=== PATIENT | male | born 1985 ===

== ENCOUNTER 2016-08-16 19:20 | Inpatient (IN) | payer MEDICAID, OTHER ==
[2016-08-16 19:22] VITALS: BMI 26.9
[2016-08-16] MEDS ORDERED: Iohexol 240 (50 ml) PO STA (19:55)
[2016-08-16] MEDS ORDERED: Iohexol 240 (50 ml) ONE (19:56)
[2016-08-16 20:07] LABS: BASO # 0.1 K/uL (0.0-0.2); BASO % 0.8 % (0.0-2.0); EOS # 0.1 K/uL (0.0-0.7); EOS % 1.4 % (0.0-4.0); HEMATOCRIT 46.8 % (35.0-51.0); LYMPH % 29.7 % (20.0-40.0); MEAN CELL VOLUME 94.4 fl (80.0-94.0); MEAN CORPUSCULAR HEMOGLOBIN 32.5 pg (27.0-31.0); MEAN CORPUSCULAR HGB CONC 34.4 g/dL (33.0-37.0); MEAN PLATELET VOLUME 8.1 fl (7.2-11.7); MONO # 0.5 K/uL (0.0-0.8); MONO % 7.1 % (0.0-10.0); NEUT # 4.1 K/uL (1.8-7.0); NRBC % 0.1 % (0.0-0.0); RED CELL DISTRIBUTION WIDTH 12.6 % (11.5-14.5); WHITE BLOOD COUNT 6.8 K/uL (4.8-10.8)
[2016-08-16 20:17] LABS: ALB/GLOB RATIO 1.6 (1.0-2.1); ALCOHOL SERUM < 10 mg/dl (0-10); ALKALINE PHOSPHATASE 53 U/L (38-126); ALT/SGPT 33 U/L (21-72); AST/SGOT 30 U/L (17-59); BILIRUBIN,TOTAL 1.6 mg/dl (0.2-1.3); BLOOD UREA NITROGEN 11 mg/dl (9-20); CALCIUM 9.7 mg/dL (8.4-10.2); CARBON DIOXIDE 22 mmol/L (22-30); CHLORIDE 105 mmol/L (98-107); GFR AFRICAN-AMERICAN > 60; GLUCOSE,RANDOM 81 mg/dL (75-110); LIPASE 65 U/L (23-300); POTASSIUM 3.8 MMOL/L (3.6-5.0); SODIUM 139 mmol/l (132-148); TOTAL PROTEIN 8.1 G/DL (6.3-8.2)
[2016-08-16 20:47] LABS: RBC URINE 8 /hpf (0-3); URINE BILIRUBIN NEGATIVE (NEGATIVE); URINE BLOOD SMALL (NEGATIVE); URINE COLOR YELLOW (YELLOW); URINE GLUCOSE (UA) NEG (Normal); URINE KETONE TRACE mg/dL (NEGATIVE); URINE LEUKOCYTE ESTERASE NEG Leu/uL (Negative); URINE PROTEIN 30 mg/dL (NEGATIVE); URINE UROBILINOGEN 0.2-1.0 mg/dL (0.2-1.0); WBC URINE 1 /hpf (0-5)
--- NOTE | 2016-08-16 21:01 | ED PDOC ---
HPI: General Adult Time Seen by Provider: 08/16/16 19:34 Chief Complaint (Nursing): Psychiatric Evaluation Chief Complaint (Provider): Generalized Weakness/Right-Sided Abdominal Pain History Per: Patient, Family (mother) History/Exam Limitations: no limitations Onset/Duration Of Symptoms: Hrs (2 hours prior to arrival) Have you had recent travel within the past 21 days to any of the following countries: [place], [place], [place] or [place]?: No Current Symptoms Are (Timing): Still Present Severity: Moderate Context: Noncompliance with Lisinopril (HTN medication) Location: Diffuse, generalized weakness/Right abdomen Additional Complaint(s): Laurent Moore is a 31 year old male, with a past medical history of bipolar disorder and hypertension, who presents to the emergency department via EMS for the evaluation of generalized weakness and right-sided abdominal pain, that the patient began experiencing 2 hours prior to arrival. Patient is in noncompliance with Lisinopril, a medication that he is meant to be taking for hypertension. Patient reports that his sister called the EMS to bring him in to the hospital; however, he did not wish to come here. Mother is at bedside with patient, states that he has bipolar disorder, and that he has been religiously preoccupied for the past 4 months, in which he is under delusion and believes that he is a "prophet". Patient makes no complaints when asked about his abdominal pain; however, feels as if his left leg is "internally " bleeding. Denies a fever, cough, nausea, vomiting, diarrhea, shortness of breath, or any psychiatric complaints. PMD: Lance Sam Past Medical History Reviewed: Historical Data, Nursing Documentation, Vital Signs Vital Signs: Last Vital Signs Temp 98.1 F 08/17/16 02:38 Pulse 81 08/17/16 02:38 Resp 16 08/17/16 02:38 BP 134/84 08/17/16 02:38 Pulse Ox 99 08/17/16 03:13 - Medical History PMH: Bipolar Disorder, Fractures (arm, casted w/o surgery), Hepatitis (type B), HTN Denies: Chronic Kidney Disease Other PMH: Hemorrhoids - Surgical History Surgical History: Hernia Repair - Family History Family History: States: No Known Family Hx - Living Arrangements Living Arrangements: With Family - Social History Current smoker - smoking cessation education provided: No Ex-Smoker (has not smoked in the last 12 months): No Alcohol: None Drugs: Denies - Immunization History Hx Tetanus Toxoid Vaccination: No Hx Influenza Vaccination: No Hx Pneumococcal Vaccination: No - Home Medications Home Medications: Ambulatory Orders Medication Instructions Recorded No Known Home Med 08/16/16 - Allergies Allergies/Adverse Reactions: Allergies Allergy/AdvReac Type Severity Reaction Status Date / Time No Known Allergies Allergy Verified 03/29/16 22:37 Review of Systems ROS Statement: Except As Marked, All Systems Reviewed And Found Negative Constitutional: Negative for: Fever Respiratory: Negative for: Cough, Shortness of Breath Gastrointestinal: Positive for: Abdominal Pain (right-sided). Negative for: Nausea, Vomiting, Diarrhea Neurological: Positive for: Weakness (generalized) Psych: Negative for: Other (psychiatric complaints) Physical Exam - Reviewed Nursing Documentation Reviewed: Yes Vital Signs Reviewed: Yes - Physical Exam Appears: Positive for: Well, Non-toxic, No Acute Distress Head Exam: Positive for: ATRAUMATIC, NORMOCEPHALIC Skin: Positive for: Normal Color, Warm, Dry Eye Exam: Positive for: Normal appearance, EOMI Cardiovascular/Chest: Positive for: Regular Rate, Rhythm. Negative for: Murmur Respiratory: Positive for: Normal Breath Sounds. Negative for: Respiratory Distress Gastrointestinal/Abdominal: Positive for: Normal Exam, Soft. Negative for: Tenderness Extremity: Positive for: Normal ROM. Negative for: Tenderness Neurologic/Psych: Positive for: Alert, Oriented, Mood/Affect (flat affect), Other (appears internally preoccupied) - Laboratory Results Result Diagrams: 08/16/16 20:00 08/16/16 20:00 - ECG O2 Sat by Pulse Oximetry: 99 (RA) Pulse Ox Interpretation: Normal Medical Decision Making Medical Decision Makin:34 Initial Impression: 31 year old male with vague abdominal pain, setting of known bipolar disorder, and mandaeism delusion. Initial Plan: * CT Abdomen & Pelvis w/ PO & IV Contrast * EKG * Alcohol Serum * CBC * CMP * Lipase * Urine Drug Screen * Urinalysis * Iohexol 50 ml PO * Crisis Evaluation * 1:1 Observation * ED Observation 20:30 Patient denies pain medication. 22:25 CT Abdomen & Pelvis w/ PO & IV Contrast Results FINDINGS: Lower thorax: Mild cardiomegaly. ABDOMEN: Liver: Unremarkable. No mass. Gallbladder and bile ducts: No calcified stones. No ductal dilation. Pancreas: No ductal dilation. No mass. Spleen: No splenomegaly. Adrenals: RIGHT adrenal calcifications. Kidneys and ureters: Few too small to characterize lesions within kidneys. No hydronephrosis. Stomach and bowel: No definite mural thickening. Few minimally distended loops of small bowel, likely ileus. Appendix: Normal caliber. No inflammation. PELVIS: Bladder: Unremarkable. Reproductive: Unremarkable as visualized. ABDOMEN and PELVIS: Intraperitoneal space: No significant fluid collection. No free air. Bones/Joints: Chronic L5 pars defects. No acute fracture. Soft tissues: Postsurgical changes of RIGHT inguinal region. 2.1 x 1.5 x 2.4 cm fluid collection without peripheral enhancement at level of RIGHT inguinal canal , nonspecific but likely seroma. Vasculature: Unremarkable. No abdominal aortic aneurysm. Lymph nodes: No pathologically enlarged lymph nodes. IMPRESSION: 1. No CT evidence of appendicitis. 2. Incidental/non-acute findings are described above. 22:36 Patient will be placed within ED Observation secondary to time-extensive workup. Pending [facility] screening evaluation. See Observation note for further updates. PAtient is medically stable for psychiatric transfer and admission Scribe Attestation: Documented by Alexx Tyler, acting as a scribe for Elian Aggarwal MD. Provider Scribe Attestation: All medical record entries made by the Scribe were at my direction and personally dictated by me. I have reviewed the chart and agree that the record accurately reflects my personal performance of the history, physical exam, medical decision making, and the department course for this patient. I have also personally directed, reviewed, and agree with the discharge instructions and disposition. ED OBSERVATION Discharge: Yes Date of observation admission: 05/13/17 Time of observation admission: 22:36 - Observation admission statement Patient is being placed in observation because:: Patient will be placed within ED Observation secondary to time-extensive workup. - Goals of Observation Goals of observation are:: Pending [facility] screening evaluation. - Progress Note Progress Note: 08/16/16 23:21 Vitals stabel and pt resting comfortably Pt evaluated by crisis and will be held for [facility] screener evaluation Pt placed on 1:1 status 08/17/16 03:12 As per crisis patient is now amenable to voluntary admission Dx Psychosis Fair 08/17/16 03:13 Disposition - Clinical Impression Clinical Impression: Psychosis - Patient ED Disposition Is Patient to be Admitted: Yes - Disposition Disposition Time: 22:36 Condition: FAIR - Pt Status Changed To: Hospital Disposition Of: Inpatient - Admit Certification Admit to Inpatient:: After my assessment, the patient will require hospitalization for at least two midnights. This is because of the severity of symptoms shown, intensity of services needed, and/or the medical risk in this patient being treated as an outpatient.
[2016-08-16] MEDS ORDERED: Sodium Chloride 0.9% 50 ML IV ONE (21:20)
[2016-08-16] MEDS ORDERED: Iohexol 300 100 ML IJ ONE (21:20)
--- NOTE | 2016-08-16 22:26 | CT ---
EXAM: CT Abdomen and Pelvis With Intravenous Contrast CLINICAL HISTORY: 31 years old, male; Pain; Abdominal pain; Localized; Right lower quadrant (rlq); Prior surgery; Surgery date: 6+ months; Surgery type: Rt inguinal hernia repair 2011; Patient HX: Rtlq pain. Hepatitis b. Bipolar hemmorroids; Additional info: Abd pain TECHNIQUE: Axial computed tomography images of the abdomen and pelvis with intravenous contrast. This CT exam was performed using one or more of the following dose reduction techniques: automated exposure control, adjustment of the mA and/or kV according to patient size, and/or use of iterative reconstruction technique. Coronal and sagittal reformatted images were created and reviewed. CONTRAST: 98 mL of OMNIPAQUE administered intravenously. COMPARISON: No relevant prior studies available. FINDINGS: Lower thorax: Mild cardiomegaly. ABDOMEN: Liver: Unremarkable. No mass. Gallbladder and bile ducts: No calcified stones. No ductal dilation. Pancreas: No ductal dilation. No mass. Spleen: No splenomegaly. Adrenals: RIGHT adrenal calcifications. Kidneys and ureters: Few too small to characterize lesions within kidneys. No hydronephrosis. Stomach and bowel: No definite mural thickening. Few minimally distended loops of small bowel, likely ileus. Appendix: Normal caliber. No inflammation. PELVIS: Bladder: Unremarkable. Reproductive: Unremarkable as visualized. ABDOMEN and PELVIS: Intraperitoneal space: No significant fluid collection. No free air. Bones/joints: Chronic L5 pars defects. No acute fracture. Soft tissues: Postsurgical changes of RIGHT inguinal region. 2.1 x 1.5 x 2.4 cm fluid collection without peripheral enhancement at level of RIGHT inguinal canal, nonspecific but likely seroma. Vasculature: Unremarkable. No abdominal aortic aneurysm. Lymph nodes: No pathologically enlarged lymph nodes. IMPRESSION: 1. No CT evidence of appendicitis. 2. Incidental/non-acute findings are described above.
[2016-08-17] MEDS ORDERED: Alum-Mag Hydrox-Simethicone Susp (30 mL) PO PRN (02:52)
[2016-08-17] MEDS ORDERED: Magnesium Hydroxide Susp 30 ml UD PO PRN (02:52)
[2016-08-17] MEDS ORDERED: DiphenhydrAMINE 50 mg/ml Inj IM PRN (02:52)
[2016-08-17] MEDS ORDERED: Bismuth Subsalicylate 262 mg/15 ml Sus (240 ml) PO PRN (02:54)
[2016-08-17 03:13] VITALS: O2SAT 99
--- NOTE | 2016-08-17 08:58 | RAD ---
HISTORY: admit COMPARISON: No prior. FINDINGS: LUNGS: No active pulmonary disease. PLEURA: No significant pleural effusion identified, no pneumothorax apparent. CARDIOVASCULAR: Normal. OSSEOUS STRUCTURES: No significant abnormalities. VISUALIZED UPPER ABDOMEN: Normal. OTHER FINDINGS: None. IMPRESSION: No active disease.
[2016-08-17 09:26] LABS: T4 9.19 ug/dl (5.5-11.0)
[2016-08-17 09:40] LABS: THYROID STIMULATING HORMONE 1.46 mIU/ML (0.46-4.68)
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
--- NOTE | 2016-08-17 15:31 | CP.PCM.HP ---
History of Present Illness - History of Present Illness History of Present Illness: CC: Hallucination and Delusion History of Present Illness: A 31yoM with H/O CMY and Psychosis is hospitalized for Schizophrenia with active Psychotic behaviour. Denies sob, leg swelling or chest pain. H/O KNUTSON. Present on Admission - Present on Admission Any Indicators Present on Admission: No History of DVT/PE: No History of Uncontrolled Diabetes: No Urinary Catheter: No Decubitus Ulcer Present: No Review of Systems - Review of Systems All systems: reviewed and no additional remarkable complaints except - Psychiatric Psychiatric: As Per HPI Past Patient History - Infectious Disease Hx of Infectious Diseases: None - Past Medical History & Family History Past Medical History?: No - Past Social History Chewing Tobacco Use: Yes Cigar Use: Yes Alcohol: None Drugs: Denies - CARDIAC Hx Hypertension: Yes Other/Comment: Cardiomyopathy - PULMONARY Hx Tuberculosis: No - NEUROLOGICAL HX Cerebrovascular Accident: No Hx Seizures: No - HEENT Hx HEENT Problems: No - RENAL Hx Chronic Kidney Disease: No - ENDOCRINE/METABOLIC Hx Endocrine Disorders: No - HEMATOLOGICAL/ONCOLOGICAL Hx Cancer: No Hx Human Immunodeficiency Virus (HIV): No - INTEGUMENTARY Hx Dermatological Problems: No - MUSCULOSKELETAL/RHEUMATOLOGICAL Hx Fractures: Yes (arm, casted w/o surgery) - GASTROINTESTINAL Hx Hemorrhoids: Yes - GENITOURINARY/GYNECOLOGICAL Hx Sexually Transmitted Disorders: No - PSYCHIATRIC Hx Substance Use: No - SURGICAL HISTORY Hx Surgeries: No Hx Herniorrhaphy: Yes - ANESTHESIA Hx Anesthesia: Yes Hx Anesthesia Reactions: No Hx Malignant Hyperthermia: No Has any member of the family had a problem w/ anesthesia?: No Meds Allergies/Adverse Reactions: Allergies Allergy/AdvReac Type Severity Reaction Status Date / Time No Known Allergies Allergy Verified 03/29/16 22:37 Physical Exam - Constitutional Appears: Well, No Acute Distress - Head Exam Head Exam: ATRAUMATIC, NORMAL INSPECTION, NORMOCEPHALIC - Eye Exam Eye Exam: EOMI, Normal appearance, PERRL Pupil Exam: NORMAL ACCOMODATION, PERRL - ENT Exam ENT Exam: Mucous Membranes Dry, Mucous Membranes Moist, Normal Exam - Neck Exam Neck exam: Positive for: Full Rom, Normal Inspection - Respiratory Exam Respiratory Exam: Clear to Auscultation Bilateral, NORMAL BREATHING PATTERN - Cardiovascular Exam Cardiovascular Exam: REGULAR RHYTHM, +S1, +S2 - GI/Abdominal Exam GI & Abdominal Exam: Diminished Bowel Sounds, Normal Bowel Sounds, Soft. absent : Tenderness - Extremities Exam Extremities exam: Positive for: full ROM, normal inspection. Negative for: calf tenderness - Neurological Exam Neurological exam: Alert, CN II-XII Intact, Normal Gait, Oriented x3, Reflexes Normal - Skin Skin Exam: Dry, Intact, Normal Color, Warm Results - Vital Signs Recent Vital Signs: Last Vital Signs Temp 97.7 F 08/17/16 06:00 Pulse 90 08/17/16 06:00 Resp 19 08/17/16 06:00 BP 132/75 08/17/16 06:00 Pulse Ox 99 08/17/16 03:14 - Labs Result Diagrams: 08/16/16 20:00 08/16/16 20:00 Labs: Laboratory Results - last 24 hr 08/17/16 08:00 Triglycerides 42 Cholesterol 150 LDL Cholesterol Direct 81 HDL Cholesterol 48 Thyroxine (T4) 9.19 TSH 3rd Generation 1.46 - Imaging and Cardiology CT scan - abdomen Status: Report reviewed by me Additional comment: IMPRESSION: 1. No CT evidence of appendicitis. 2. Incidental/non-acute findings are described above. Chest x-ray Status: Report reviewed by me Additional comment: No CAute finding Assessment & Plan (1) Cardiomyopathy Assessment and Plan: Echocardiogram Resume Lisinopril 10mg Daily Status: Chronic Priority: Low (2) Psychosis Status: Acute Priority: High (3) Migraine Status: Chronic Priority: Low
--- NOTE | 2016-08-18 09:20 | CARD ---
APPROVED REPORT EKG Measurement Heart [id number] <Conclusion> Normal sinus rhythm Incomplete right bundle branch block Possible inferior and lateral wall ischemia Borderline ECG
--- NOTE | 2016-08-18 09:59 | PCM.PYCHPN ---
Psychiatric Progress Note - Psychiatric Progress Note Patient seen today, length of contact: Patient evaluated, case discussed with team, chart reviewed, 35 min Patient Chief Complaint: "I've been hearing voices." Problems Identified/Issues Discussed: Patient continues to report AH and +Quaker delusions. When asked what his nursing home goals are, he stated "to be a better prophet of God." He is calm and cooperative but has poor insight into the severity of his psychosis. He states that he does not want to take the Risperdal anymore because he felt GI upset. [employer] Manager discussed starting Zyprexa, r/b/se reviewed, patient in agreement. Medication Change: Yes (Stop Risperdal, Start Zyprexa 10 mg PO Daily) Medical Record Reviewed: Yes Consults ordered or reviewed: Medicine consult appreciated Mental Status Examination - Cognitive Function Orientation: Person, Place, Situation, Time Memory: Intact Attention: WNL Concentration: WNL Association: WNL Fund of Knowledge: WNL - Mood Mood: Neutral - Affect Affect: Blunted - Speech Speech: Appropriate - Formal Thought Process Formal Thought Process: Hallucinations, Delusions, Paranoia Psychotic Thoughts and Behaviors: +AH, paranoia, delusions - Suicidal Ideation Suicidal Ideation: No - Homicidal Ideation Homicidal Ideation: No Goal/Treatment Plan - Goal/Treatment Plan Need for Continued Stay: Remain at risks for inpatient hospitalization, Discharge may exacerbated symptoms Progress Toward Problem(s) and Goals/Treatment Plan: 31 yo male w/ acute psychosis, likely has schizophrenia, continues to need acute inpatient hospitalization for treatment and stabilization. -Patient unwilling to continue taking Risperdal, will start Zyprexa 10 mg PO Daily -Medicine consult appreciated -Individual and group therapy -Obtain collateral history Estimated Date of D/C: 08/25/16
--- NOTE | 2016-08-18 16:10 | CARD ---
APPROVED REPORT EXAM: Two-dimensional and M-mode echocardiogram with Doppler and color Doppler. Other Information Quality : GoodRhythm : NSR INDICATION Cardiomyopathy 2D DIMENSIONS IVSd1.07 (0.7-1.1cm)LVDd5.58 (3.9-5.9cm) LVOT Diameter2.66 (1.8-2.4cm)PWd0.89 (0.7-1.1cm) IVSs0.95 (0.8-1.2cm)LVDs5.15 (2.5-4.0cm) FS (%) 7.8 %PWs1.00 (0.8-1.2cm) LVEF (%)30.0 (>50%) M-Mode DIMENSIONS Left Atrium (MM)3.29 (2.5-4.0cm)IVSd1.03 (0.7-1.1cm) Aortic Root3.82 (2.2-3.7cm)LVDd6.03 (4.0-5.6cm) Aortic Cusp Exc.2.62 (1.5-2.0cm)PWd0.79 (0.7-1.1cm) IVSs1.24 cmFS (%) 18 % LVDs4.94 (2.0-3.8cm)PWs1.06 cm Mitral Valve E/A ratio0.0 TDI E/Lateral E'0.0E/Medial E'0.0 Pulmonary Valve PV Peak Eamcqlhz16.6cm/s LEFT VENTRICLE The Left Ventricle is borderline dilated. There is normal left ventricular wall thickness. The systolic function is severely impaired. There is global hypokinesis of the left ventricle. The left ventricular diastolic function is normal. No left ventricle thrombus noted on this study. RIGHT VENTRICLE The right ventricle is normal size. There is normal right ventricular wall thickness. RV Systolic function is mildly reduced. ATRIA The left atrium size is normal. The right atrium size is normal. AORTIC VALVE The aortic valve is mildly thickened. No aortic regurgitation is present. There is no aortic valvular stenosis. MITRAL VALVE The mitral valve is mildly thickened. There is no mitral valve stenosis. There is no mitral valve regurgitation noted. TRICUSPID VALVE The tricuspid valve is normal in structure and function. There is no tricuspid valve regurgitation noted. PULMONIC VALVE The pulmonary valve is normal in structure and function. There is no pulmonic valvular regurgitation. GREAT VESSELS The aortic root is normal in size. The IVC was not visualized. PERICARDIAL EFFUSION The pericardium appears normal. <Conclusion> The Left Ventricle is borderline dilated. There is normal left ventricular wall thickness. The systolic function is severely impaired. There is global hypokinesis of the left ventricle. No left ventricle thrombus noted on this study.
--- NOTE | 2016-08-18 20:53 | CP.PCM.PN ---
Subjective - Date & Time of Evaluation Date of Evaluation: 08/18/16 Time of Evaluation: 17:00 - Subjective Subjective: Seen and Examined at the bed side. Sates feeling better. Objective - Vital Signs/Intake and Output Vital Signs (last 24 hours): Temp Pulse Resp BP Pulse Ox 97 F L 66 18 113/66 99 08/18/16 06:00 08/18/16 08:58 08/18/16 06:00 08/18/16 08:58 08/17/16 03:14 - Medications Medications: Current Medications Acetaminophen (Tylenol 325mg Tab) 650 mg PO Q4 PRN PRN Reason: pain level 4-7 Last Admin: 08/17/16 21:44 Dose: 650 mg Al Hydrox/Mg Hydrox/Simethicone (Maalox Plus 30 Ml) 30 ml PO Q4 PRN PRN Reason: Dyspepsia Bismuth Subsalicylate (Pepto-Bismol) 524 mg PO Q4 PRN PRN Reason: Diarrhea Diphenhydramine HCl (Benadryl) 50 mg IM Q6 PRN PRN Reason: Extrapyramidal S/S Unable PO Diphenhydramine HCl (Benadryl) 50 mg PO Q6 PRN PRN Reason: Extrapyramidal Symptoms Diphenhydramine HCl (Benadryl) 50 mg PO HS PRN PRN Reason: Sleep Haloperidol (Haldol) 5 mg PO Q4 PRN PRN Reason: Agitation Haloperidol Lactate (Haldol) 5 mg IM Q4 PRN PRN Reason: Agitation, Unable to Take PO Lisinopril (Zestril) 10 mg PO DAILY [facility] Last Admin: 08/18/16 08:58 Dose: 10 mg Lorazepam (Ativan) 2 mg IM Q4 PRN PRN Reason: Anxiety/Agitation,Unable PO Lorazepam (Ativan) 2 mg PO Q4 PRN PRN Reason: Anxiety/Agitation Magnesium Hydroxide (Milk Of Magnesia) 30 ml PO HS PRN PRN Reason: Constipation Olanzapine (Zyprexa) 10 mg PO DAILY [facility] Last Admin: 08/18/16 13:55 Dose: 10 mg - Constitutional Appears: Well, No Acute Distress - Head Exam Head Exam: ATRAUMATIC, NORMAL INSPECTION, NORMOCEPHALIC - Eye Exam Eye Exam: EOMI, Normal appearance, PERRL Pupil Exam: NORMAL ACCOMODATION, PERRL - ENT Exam ENT Exam: Mucous Membranes Moist, Normal Exam - Neck Exam Neck Exam: Full ROM, Normal Inspection. absent: Lymphadenopathy - Respiratory Exam Respiratory Exam: Clear to Ausculation Bilateral, NORMAL BREATHING PATTERN - Cardiovascular Exam Cardiovascular Exam: REGULAR RHYTHM, +S1, +S2. absent: Murmur - GI/Abdominal Exam GI & Abdominal Exam: Guarding, Soft, Normal Bowel Sounds. absent: Tenderness - Extremities Exam Extremities Exam: Full ROM, Normal Capillary Refill, Normal Inspection. absent : Joint Swelling, Pedal Edema - Back Exam Back Exam: Full ROM, NORMAL INSPECTION - Neurological Exam Neurological Exam: Alert, Awake, CN II-XII Intact, Normal Gait, Oriented x3 - Psychiatric Exam Psychiatric exam: Normal Affect, Normal Mood - Skin Skin Exam: Dry, Intact, Normal Color, Warm - Additional Findings Additional findings: 2D Echo= Left Ventricle borderline Dilated Normal LV wall Thickness The Systolic fUnction is severely Impaired EF 30% Global Hypokinesia of the LV No LeftVentricle Thrombus Assessment and Plan (1) Cardiomyopathy Assessment & Plan: Severe Systolic CHF, Compensated Add Coreg/ASA/Liptor Cardiology Consult Status: Chronic (2) Psychosis Assessment & Plan: MAnage as per Psychitrist Recommendation Status: Acute (3) Migraine Status: Chronic
--- NOTE | 2016-08-19 11:27 | PCM.PYCHPN ---
Psychiatric Progress Note - Psychiatric Progress Note Patient seen today, length of contact: Patient evaluated, case discussed with team, chart reviewed, 35 min Patient Chief Complaint: "I've been hearing voices." Problems Identified/Issues Discussed: Patient continues to report AH and +Baptism delusions. He would like his family to bring a bible for him, so he can read it while he is here. He denies adverse effects to Zyprexa. He is calm and cooperative but has poor insight into the severity of his psychosis. Medication Change: No Medical Record Reviewed: Yes Consults ordered or reviewed: Medicine consult appreciated; Cardiology consult pending Mental Status Examination - Cognitive Function Orientation: Person, Place, Situation, Time Memory: Intact Attention: WNL Concentration: WNL Association: WNL Fund of Knowledge: WN Decription of patient's judgement and insights: Poor insight/judgment - Mood Mood: Neutral - Affect Affect: Blunted - Speech Speech: Appropriate - Formal Thought Process Formal Thought Process: Hallucinations, Delusions, Paranoia Psychotic Thoughts and Behaviors: +AH, paranoia, delusions - Suicidal Ideation Suicidal Ideation: No - Homicidal Ideation Homicidal Ideation: No Goal/Treatment Plan - Goal/Treatment Plan Need for Continued Stay: Remain at risks for inpatient hospitalization, Discharge may exacerbated symptoms Progress Toward Problem(s) and Goals/Treatment Plan: 31 yo male w/ acute psychosis, likely has schizophrenia, continues to need acute inpatient hospitalization for treatment and stabilization. -Continue Zyprexa 10 mg PO Daily -Medicine consult appreciated -Individual and group therapy Estimated Date of D/C: 08/25/16
--- NOTE | 2016-08-19 15:26 | CON ---
DATE: 08/19/2016 REASON FOR CONSULTATION: Cardiomyopathy. The patient is a 31-year-old male from [facility] who has a history of bipolar disor arti, hypertension and cardiomyopathy. He presented because of generalized weakness and right-sided a bdominal pain. The patient is a very poor informant. He told me that he has been taken care of by h publications distribution clerk, Dr. Elias Loco, but is unaware of any cardiac catheterization that was done to [facility] or if an ICD was suggested for him in the past. The patient denies any shortness of breath or breanna st pain at this time and denies any palpitations. SOCIAL HISTORY: The patient is a nonsmoker. CARDIAC MEDICATIONS: Include aspirin 81 mg once a day, Coreg 3.125 mg twice a day, Lipitor 10 mg onc e a day, Zestril 10 mg once a day. REVIEW OF SYSTEMS: No nausea or vomiting. No fever or chills. No productive cough. PHYSICAL EXAMINATION: GENERAL: The patient is a young middle-aged male who does not appear to be in any distress. VITAL SIGNS: Blood pressure 128/76, heart rate 102, temperature 97.9, respiration 20. HEENT: Normocephalic. NECK: No JVD. CHEST: Clear. HEART: S1, S2 regular. EXTREMITIES: No edema. LABORATORIES: SMA-7 is within normal limits except for creatinine of 0.7. TSH level is within lay l limits. Lipid profile is within normal limits. Hemoglobin and hematocrit 16.1 and 46.8, white cou nt and platelet count are within normal limits. Urine drug screen is negative. EKG revealed sinus rhythm at rate of 85, incomplete right bundle branch block, consider inferolateral ischemia. Echocardiograph study revealed borderline dilated left ventricle with severely impaired s ystolic function, which was estimated at 30%, and global hypokinesis of the left ventricle, no apical thrombus was noted. ASSESSMENT: 1. Cardiomyopathy. 2. Abnormal EKG, suggestive of inferolateral ischemia. 3. Hypertension. 4. Bipolar disorder. RECOMMENDATIONS: Continue current Coreg 3.125 mg twice a day, Lipitor at 10 mg once a day, aspirin 8 1 mg once a day, Zestril at 10 mg once a day. Start Lovenox at 30 mg subcutaneously once a day. I d id put a request to obtain cardiac catheterization from the patient's publications distribution clerk, Dr. Elias Odonnell d. Mamadou Burt MD cc: [id number] TT: 08/19/2016 15:25:56 Confirmation # [id number] Dictation # [id number] en
[2016-08-19] MEDS: Enoxaparin 40 mg Syringe SC SCH (17:02)
[2016-08-20] MEDS: Enoxaparin 40 mg Syringe SC SCH (08:35)
--- NOTE | 2016-08-20 10:15 | PCM.PYCHPN ---
Psychiatric Progress Note - Psychiatric Progress Note Patient seen today, length of contact: Patient evaluated, case discussed with team, chart reviewed, 35 min Patient Chief Complaint: "The voices are getting better" Problems Identified/Issues Discussed: Patient continues to reports less AH, reports that they are saying "you will get better" and "you will leave soon [the hospital]". He continues to be religiously preoccupied with beliefs that he is a prophet of god. He is compliant with Zyprexa and denies adverse effects. He is calm and cooperative but has poor insight into the severity of his psychosis. Medication Change: No Medical Record Reviewed: Yes Consults ordered or reviewed: Medicine and Cardiology Consults Mental Status Examination - Cognitive Function Orientation: Person, Place, Situation, Time Memory: Intact Attention: WNL Concentration: WNL Association: WNL Fund of Knowledge: WN Decription of patient's judgement and insights: Poor insight/judgment - Mood Mood: Neutral - Affect Affect: Blunted - Speech Speech: Appropriate - Formal Thought Process Formal Thought Process: Hallucinations, Delusions Psychotic Thoughts and Behaviors: +AH, baptism delusions/preoccupations - Suicidal Ideation Suicidal Ideation: No - Homicidal Ideation Homicidal Ideation: No Goal/Treatment Plan - Goal/Treatment Plan Need for Continued Stay: Remain at risks for inpatient hospitalization, Discharge may exacerbated symptoms Progress Toward Problem(s) and Goals/Treatment Plan: 31 yo male w/ acute psychosis, likely has schizophrenia, continues to need acute inpatient hospitalization for treatment and stabilization. -Continue Zyprexa 10 mg PO Daily -Medicine + Cardiology consults appreciated -Individual and group therapy Estimated Date of D/C: 08/25/16 - Smoking Cessation Smoking Cessation Initiated: No Reason for not providing: Not indicated
--- NOTE | 2016-08-20 10:59 | CP.PCM.PN ---
Subjective - Date & Time of Evaluation Date of Evaluation: 08/19/16 Time of Evaluation: 19:10 Objective - Vital Signs/Intake and Output Vital Signs (last 24 hours): Temp Pulse Resp BP Pulse Ox 97.5 F L 62 20 100/62 99 08/20/16 05:56 08/20/16 08:36 08/20/16 05:56 08/20/16 08:36 08/17/16 03:14 - Medications Medications: Current Medications Acetaminophen (Tylenol 325mg Tab) 650 mg PO Q4 PRN PRN Reason: pain level 4-7 Last Admin: 08/17/16 21:44 Dose: 650 mg Al Hydrox/Mg Hydrox/Simethicone (Maalox Plus 30 Ml) 30 ml PO Q4 PRN PRN Reason: Dyspepsia Aspirin (Aspirin Chewable) 81 mg PO DAILY [facility] Last Admin: 08/20/16 08:31 Dose: 81 mg Atorvastatin Calcium (Lipitor) 10 mg PO DAILY [facility] Last Admin: 08/20/16 08:35 Dose: 10 mg Bismuth Subsalicylate (Pepto-Bismol) 524 mg PO Q4 PRN PRN Reason: Diarrhea Carvedilol (Coreg) 3.125 mg PO Q12 [facility] Last Admin: 08/20/16 08:36 Dose: 3.125 mg Diphenhydramine HCl (Benadryl) 50 mg IM Q6 PRN PRN Reason: Extrapyramidal S/S Unable PO Diphenhydramine HCl (Benadryl) 50 mg PO Q6 PRN PRN Reason: Extrapyramidal Symptoms Diphenhydramine HCl (Benadryl) 50 mg PO HS PRN PRN Reason: Sleep Enoxaparin Sodium (Lovenox) 40 mg SC DAILY [facility] PRN Reason: Protocol Last Admin: 08/20/16 08:35 Dose: 40 mg Haloperidol (Haldol) 5 mg PO Q4 PRN PRN Reason: Agitation Haloperidol Lactate (Haldol) 5 mg IM Q4 PRN PRN Reason: Agitation, Unable to Take PO Lisinopril (Zestril) 10 mg PO DAILY [facility] Last Admin: 08/20/16 08:34 Dose: 10 mg Lorazepam (Ativan) 2 mg IM Q4 PRN PRN Reason: Anxiety/Agitation,Unable PO Lorazepam (Ativan) 2 mg PO Q4 PRN PRN Reason: Anxiety/Agitation Magnesium Hydroxide (Milk Of Magnesia) 30 ml PO HS PRN PRN Reason: Constipation Olanzapine (Zyprexa) 10 mg PO HS [facility] Assessment and Plan (1) Cardiomyopathy Status: Chronic (2) Psychosis Status: Acute (3) Migraine Status: Chronic
--- NOTE | 2016-08-20 14:13 | PN ---
DATE: 08/20/2016 SUBJECTIVE: The patient denied any chest pain, dizziness or palpitation. He is ambulating on the fl oor. PHYSICAL EXAMINATION: VITAL SIGNS: Blood pressure 100/62, heart rate 62, temperature 97.5, respirations 20. HEENT: Head normocephalic. NECK: No JVD. CHEST: Clear. HEART: S1, S2 regular. EXTREMITIES: No edema. ASSESSMENT: 1. Cardiomyopathy, most likely hypertensive. However, rule out underlying ischemic cardiomyopathy. 2. Schizophrenia with paranoid ideation. 3. Consider anterolateral ischemic ____ changes. RECOMMENDATIONS: Dr. Loco's office was contacted yesterday and there was no record of a previous cardiac catheterization on the patient. The case was discussed at length with the primary physician, ____, as well as with psychiatry team. The patient is not a suitable candidate for invasive car diac workup, especially in the absence of chest pain, florid CHF or any signs of decompensation. The patient can be initiated on his required ____ psych medications with a followup EKG. In the meantim e, the patient will be maintained on aspirin 81 mg once a day, Coreg 3.125 mg twice a day, Lipitor 10 mg once a day, subcutaneous Lovenox at 40 mg once a day, Zestril at 10 mg once a day. Followup 12-l ead EKG, following initiating psych medications. Cardiac catheterization will be considered when the patient is stable from psychiatry point of view and the patient will be given the option if he can h ave it done by his own can runner as an outpatient or with me while an inpatient once he is psychia trically cleared. Mamadou Burt MD cc: [id number] TT: 08/20/2016 14:12:55 Confirmation # [id number] Dictation # [id number] sn
--- NOTE | 2016-08-20 23:09 | CP.PCM.PN ---
Subjective - Date & Time of Evaluation Date of Evaluation: 08/20/16 Time of Evaluation: 09:25 Objective - Vital Signs/Intake and Output Vital Signs (last 24 hours): Temp Pulse Resp BP Pulse Ox 97.7 F 83 20 120/65 99 08/20/16 16:09 08/20/16 21:20 08/20/16 16:09 08/20/16 21:20 08/17/16 03:14 - Medications Medications: Current Medications Acetaminophen (Tylenol 325mg Tab) 650 mg PO Q4 PRN PRN Reason: pain level 4-7 Last Admin: 08/17/16 21:44 Dose: 650 mg Al Hydrox/Mg Hydrox/Simethicone (Maalox Plus 30 Ml) 30 ml PO Q4 PRN PRN Reason: Dyspepsia Aspirin (Aspirin Chewable) 81 mg PO DAILY [facility] Last Admin: 08/20/16 08:31 Dose: 81 mg Atorvastatin Calcium (Lipitor) 10 mg PO DAILY [facility] Last Admin: 08/20/16 08:35 Dose: 10 mg Bismuth Subsalicylate (Pepto-Bismol) 524 mg PO Q4 PRN PRN Reason: Diarrhea Carvedilol (Coreg) 3.125 mg PO Q12 [facility] Last Admin: 08/20/16 21:20 Dose: 3.125 mg Diphenhydramine HCl (Benadryl) 50 mg IM Q6 PRN PRN Reason: Extrapyramidal S/S Unable PO Diphenhydramine HCl (Benadryl) 50 mg PO Q6 PRN PRN Reason: Extrapyramidal Symptoms Diphenhydramine HCl (Benadryl) 50 mg PO HS PRN PRN Reason: Sleep Enoxaparin Sodium (Lovenox) 40 mg SC DAILY [facility] PRN Reason: Protocol Last Admin: 08/20/16 08:35 Dose: 40 mg Haloperidol (Haldol) 5 mg PO Q4 PRN PRN Reason: Agitation Haloperidol Lactate (Haldol) 5 mg IM Q4 PRN PRN Reason: Agitation, Unable to Take PO Lisinopril (Zestril) 10 mg PO DAILY [facility] Last Admin: 08/20/16 08:34 Dose: 10 mg Lorazepam (Ativan) 2 mg IM Q4 PRN PRN Reason: Anxiety/Agitation,Unable PO Lorazepam (Ativan) 2 mg PO Q4 PRN PRN Reason: Anxiety/Agitation Magnesium Hydroxide (Milk Of Magnesia) 30 ml PO HS PRN PRN Reason: Constipation Olanzapine (Zyprexa) 10 mg PO HS [facility] Assessment and Plan (1) Cardiomyopathy Status: Chronic (2) Psychosis Status: Acute (3) Migraine Status: Chronic
[2016-08-21] MEDS: Enoxaparin 40 mg Syringe SC SCH (09:00)
--- NOTE | 2016-08-22 09:34 | PCM.PYCHPN ---
Psychiatric Progress Note - Psychiatric Progress Note Patient seen today, length of contact: Patient evaluated, case discussed with team, chart reviewed, 35 min Patient Chief Complaint: "The voices are getting better" Problems Identified/Issues Discussed: *Progress note from 08/21/16 written in the paper chart because the EMR was down Patient reports less AH, but he continues to be internally preoccupied, with sabianism delusions and is very focused on the mission that God has given him. He is compliant with Zyprexa and denies adverse effects. He is calm and cooperative but has poor insight into the severity of his psychosis. Medication Change: Yes (Increase Zyprexa to 15 mg PO HS) Medical Record Reviewed: Yes Consults ordered or reviewed: Cardiology consult Mental Status Examination - Cognitive Function Orientation: Person, Place, Situation, Time Memory: Intact Attention: WNL Concentration: WNL Association: WNL Fund of Knowledge: WN Decription of patient's judgement and insights: Poor insight/judgment - Mood Mood: Neutral - Affect Affect: Blunted - Speech Speech: Appropriate - Formal Thought Process Formal Thought Process: Hallucinations, Delusions, Paranoia Psychotic Thoughts and Behaviors: +AH, sabianism delusions/preoccupations - Suicidal Ideation Suicidal Ideation: No - Homicidal Ideation Homicidal Ideation: No Goal/Treatment Plan - Goal/Treatment Plan Need for Continued Stay: Remain at risks for inpatient hospitalization, Discharge may exacerbated symptoms Progress Toward Problem(s) and Goals/Treatment Plan: 31 yo male w/ acute psychosis, likely has schizophrenia, continues to need acute inpatient hospitalization for treatment and stabilization. -Increase Zyprexa to 15 mg PO HS -Medicine + Cardiology consults appreciated; will check f/u EKG -Individual and group therapy Estimated Date of D/C: 08/25/16
[2016-08-22] MEDS: Enoxaparin 40 mg Syringe SC SCH (10:17)
--- NOTE | 2016-08-22 10:36 | PN ---
DATE: 08/22/2016 The patient seen and examined. The patient seen for Dr. Downey while he is away. The patient is slee py, was agitated last night and was given sedative medication. The patient is not in the mood of pro viding any history or review of system, but denies any specific medical complaint and no specific iss ue reported by nursing staff. PHYSICAL EXAMINATION: GENERAL: The patient is in no acute distress. VITAL SIGNS: Stable. HEART: S1, S2 normal, regular. LUNGS: Good bilateral air entry. ABDOMEN: Soft, nontender. EXTREMITIES: No edema, no calf swelling, no tenderness, no acute ischemia. CENTRAL NERVOUS SYSTEM: Essentially unchanged. DIAGNOSTIC DATA: Available reviewed. Overall, patient's general medical condition is stable. PLAN: As ordered. Presley Cotto MD cc: [id number] TT: 08/22/2016 10:35:01 Confirmation # [id number] Dictation # [id number] en
--- NOTE | 2016-08-22 22:01 | CARD ---
APPROVED REPORT EKG Measurement Heart [id number] <Conclusion> Normal sinus rhythm Possible Left atrial enlargement Left ventricular hypertrophy with QRS widening T wave abnormality, consider lateral ischemia Abnormal ECG
[2016-08-23 08:11] LABS: HEMATOCRIT 43.4 % (35.0-51.0); MEAN CELL VOLUME 95.1 fl (80.0-94.0); MEAN CORPUSCULAR HEMOGLOBIN 32.4 pg (27.0-31.0); MEAN CORPUSCULAR HGB CONC 34.1 g/dL (33.0-37.0); RED CELL DISTRIBUTION WIDTH 12.4 % (11.5-14.5); WHITE BLOOD COUNT 4.8 K/uL (4.8-10.8)
[2016-08-23 08:22] LABS: ALB/GLOB RATIO 1.7 (1.0-2.1); ALKALINE PHOSPHATASE 38 U/L (38-126); ALT/SGPT 78 U/L (21-72); AST/SGOT 61 U/L (17-59); BILIRUBIN,TOTAL 1.1 mg/dl (0.2-1.3); BLOOD UREA NITROGEN 11 mg/dl (9-20); CALCIUM 9.4 mg/dL (8.4-10.2); CARBON DIOXIDE 29 mmol/L (22-30); CHLORIDE 103 mmol/L (98-107); CHOLESTEROL 116 mg/dL (0-199); GFR AFRICAN-AMERICAN > 60; GLUCOSE,RANDOM 90 mg/dL (75-110); POTASSIUM 4.1 MMOL/L (3.6-5.0); SODIUM 142 mmol/l (132-148); TOTAL PROTEIN 6.7 G/DL (6.3-8.2)
--- NOTE | 2016-08-23 13:29 | PCM.PYCHPN ---
Psychiatric Progress Note - Psychiatric Progress Note Patient seen today, length of contact: discussed with rn Patient Chief Complaint: i'm tired Problems Identified/Issues Discussed: pt seen by the certified medical records coder this am. pt is sitting in day area, but not interacting with staff. responds only briefly to questions, with delay in response. he reports no medication side effects. Medication Change: No ( ) Medical Record Reviewed: Yes Mental Status Examination - Cognitive Function Orientation: Person, Place, Situation, Time Memory: Intact Attention: WNL Concentration: WNL Association: WNL Fund of Knowledge: WN Decription of patient's judgement and insights: fair - Mood Mood: Neutral - Affect Affect: Blunted - Speech Speech: Soft - Formal Thought Process Formal Thought Process: Hallucinations, Delusions, Paranoia - Suicidal Ideation Suicidal Ideation: No - Homicidal Ideation Homicidal Ideation: No Goal/Treatment Plan - Goal/Treatment Plan Need for Continued Stay: Remain at risks for inpatient hospitalization, Discharge may exacerbated symptoms Progress Toward Problem(s) and Goals/Treatment Plan: schizophrenia needs further treatment cardiology/hospitalist following pt no change in zyprexa dose today Estimated Date of D/C: 08/25/16
--- NOTE | 2016-08-23 16:32 | PN ---
DATE: 08/23/2016 SUBJECTIVE: The patient was transferred nearer to the nursing station because of significant commission auditor y hallucinations. According to the nursing team the patient had no reports of dizziness, no fall, no reported chest pain or shortness of breath and when the patient was asked about any of the above sym ptoms, the patient denied having any such as dizziness, shortness of breath, chest pain or palpitatio n. PHYSICAL EXAMINATION: VITAL SIGNS: Blood pressure 129/87, heart rate 99, temperature 97.1, respirations 20. HEENT: Normocephalic. NECK: No JVD. CHEST: Clear. HEART: S1, S2 regular. ABDOMEN: Soft. EXTREMITIES: No edema. LABORATORIES: Today's SMA-7 is within normal limits. Liver enzymes are mildly elevated. Lipid prof ile is within normal limits. Chest x-ray done yesterday revealed sinus , possible left atrial e nlargement, LVH and questionable lateral ischemic T-wave changes. The QT interval remains normal and there are no significant changes in the EKG compared to the initial one. ASSESSMENT: 1. Cardiomyopathy. 2. Schizophrenia with significant auditory hallucinations. 3. Hypertension. RECOMMENDATIONS: Continue aspirin 81 mg once a day, Coreg 3.125 mg twice a day, Zestril 10 mg once a day. No invasive cardiac workup is justified at this time until the patient is more stable from a p sychiatry point of view. Mamadou Burt MD cc: [id number] TT: 08/23/2016 16:31:32 Confirmation # [id number] Dictation # [id number] sebastian
--- NOTE | 2016-08-24 09:51 | PN ---
DATE: 08/24/2016 MEDICAL FOLLOWUP PROGRESS NOTE The patient is seen and examined. Interim events noted. Consults noted and appreciated. Cardiology followup and intervention noted and appreciated. The patient remains in geropsych unit. The patien t is sleepy, arousable. Denies any specific complaint. No specific issue reported by nursing staff. PHYSICAL EXAMINATION: GENERAL: The patient is in no acute distress. VITAL SIGNS: Stable. HEART: S1, S2 normal, regular. LUNGS: Good bilateral air exchange. ABDOMEN: Soft, nontender. EXTREMITIES: No edema, no calf swelling, no tenderness, no acute ischemia. CENTRAL NERVOUS SYSTEM: Essentially unchanged. DIAGNOSTIC DATA: Available diagnostic data reviewed. Overall, the patient's general medical condition is stable. PLAN: As ordered. Presley Cotto MD cc: [id number] TT: 08/24/2016 09:51:45 Confirmation # [id number] Dictation # [id number] clay
--- NOTE | 2016-08-24 12:14 | US ---
PROCEDURE: Ultrasound of the Kidneys HISTORY: abnormal ct scan COMPARISON: CT abdomen and pelvis with contrast performed 08/16/16 FINDINGS: RIGHT KIDNEY: Measures: 10.2 x 6.1 x 4.7 cm. No obstructing calculus, hydronephrosis, or renal cyst identified. LEFT KIDNEY: Measures: 11.3 x 6.1 x 6.0 cm. No obstructing calculus, hydronephrosis, or renal cyst identified. OTHER FINDINGS: None. IMPRESSION: Unremarkable renal ultrasound as above.
--- NOTE | 2016-08-24 12:48 | PCM.PYCHPN ---
Psychiatric Progress Note - Psychiatric Progress Note Patient seen today, length of contact: discussed with rn Patient Chief Complaint: i need to rest now Problems Identified/Issues Discussed: pt resting in room. no complaints of medication side effects. did not want to transfer to [facility] yesterday. per rn, pt seems to be tolerating visits with family more than earlier in the week. Medication Change: No ( ) Medical Record Reviewed: Yes Mental Status Examination - Cognitive Function Orientation: Person, Place, Situation, Time Memory: Intact Attention: WNL Concentration: WNL Association: WNL Fund of Knowledge: [facility] Decription of patient's judgement and insights: fair - Mood Mood: Neutral - Affect Affect: Blunted - Speech Speech: Soft - Formal Thought Process Formal Thought Process: Hallucinations, Delusions, Paranoia - Suicidal Ideation Suicidal Ideation: No - Homicidal Ideation Homicidal Ideation: No Goal/Treatment Plan - Goal/Treatment Plan Need for Continued Stay: Remain at risks for inpatient hospitalization, Discharge may exacerbated symptoms Progress Toward Problem(s) and Goals/Treatment Plan: schizophrenia needs further treatment cardiology/hospitalist following pt no change in zyprexa dose today Estimated Date of D/C: 08/25/16
[2016-08-25 06:22] VITALS: PULSE 72; RESP 20; TEMP 97.3
--- NOTE | 2016-08-25 07:59 | PN ---
DATE: 08/25/2016 The patient seen and examined. Interim events noted. Consults noted, appreciated. Psychiatric foll owup and intervention noted and appreciated. The patient feels okay. No specific complaint. No breanna st pain, no shortness of breath. PHYSICAL EXAMINATION: GENERAL: The patient is in no acute distress. VITAL SIGNS: Stable. Physical exam is essentially unchanged. DIAGNOSTIC DATA: Available reviewed. Overall, patient's general medical condition is stable. PLAN: As ordered. Presley Cotto MD cc: [id number] TT: 08/25/2016 07:58:37 Confirmation # [id number] Dictation # [id number]
--- NOTE | 2016-08-25 08:58 | PN ---
DATE: 08/23/2016 The patient seen and examined. Interim events noted. The patient feels okay. No specific complaint s. No chest pain or shortness of breath. No abdominal pain. PHYSICAL EXAMINATION: GENERAL: The patient is in no acute distress. VITAL SIGNS: Stable. HEART: S1, S2 normal, regular. LUNGS: Good bilateral air entry. ABDOMEN: Soft, nontender. EXTREMITIES: No calf swelling, no tenderness, no . CENTRAL NERVOUS SYSTEM: Essentially unchanged. DIAGNOSTIC DATA: . Diagnostic data reviewed. The patient seen and examined . The patient also has . Further workup is pending. Overal l, the patient's general medical condition is stable. PLAN: As ordered. Presley Cotto MD cc: [id number] TT: 08/23/2016 18:08:02 Confirmation # [id number] Dictation # [id number] dn
--- NOTE | 2016-08-25 09:37 | US ---
HISTORY: abn lft COMPARISON: Comparison made with renal ultrasound 08/24/[address] scan of the abdomen and pelvis are 2016. TECHNIQUE: Sonographic evaluation of the right upper quadrant of the abdomen. FINDINGS: LIVER: Liver exhibits normal size measuring approximately 14.5 cm in CC dimension . Normal echogenicity of the liver parenchyma. No mass. No intrahepatic bile duct dilatation. GALLBLADDER: Gallbladder is physiologically distended. No evidence of intraluminal gallbladder calculi. No pericholecystic fluid collections or sonographic Valdovinos sign. COMMON BILE DUCT: Measures approximately 2.6 mm. No stones. No dilatation. PANCREAS: Visualized portions of the pancreas are grossly unremarkable. RIGHT KIDNEY: Measures 10.4 x 5.5 x 4.0 cm cm in length. Normal echogenicity. No calculus, mass, or hydronephrosis. AORTA: No aneurysmal dilatation. IVC: Unremarkable. OTHER FINDINGS: None . IMPRESSION: Limited right upper quadrant ultrasound demonstrates no acute pathology
[2016-08-25 10:10] VITALS: BP 122/76
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
[2016-08-26 07:10] LABS: HAV AB (IGM) Nonreactive (Nonreactive)
== END 2016-08-25 14:00 | disposition home or self-care (01) | DRG 430 ==
LOC: H.ER 19:20 → H.EROBSV 20:36 → OBSVTOIN 20:36 → H.ERHOLD 20:36 → H.STEP 08-17 02:45
PROVIDERS: ADMIT Psychiatry & Neurology Psychiatry; ATTEND Psychiatry & Neurology Psychiatry
PROC: GZ51ZZZ Individual Psychotherapy, Behavioral (ICD-10-PCS; principal; 2016-08-17)
DX: F20.0 Paranoid schizophrenia (principal); I42.9 Cardiomyopathy, unspecified; I10 Essential (primary) hypertension; G43.909 Migraine, unspecified, not intractable, without status migrainosus; R94.31 Abnormal electrocardiogram [ECG] [EKG]

== ENCOUNTER 2017-07-19 00:04 | Emergency (ER) | payer MEDICAID, OTHER ==
[2017-07-19 00:04] VITALS: BMI 26.9
[2017-07-19 00:15] VITALS: BP 132/84; PULSE 86; RESP 16; TEMP 98.6; O2SAT 99
--- NOTE | 2017-07-19 03:14 | ED PDOC ---
HPI: Psych/Substance Abuse Time Seen by Provider: 07/19/17 02:29 Chief Complaint (Nursing): Psychiatric Evaluation Chief Complaint (Provider): Hallucinations History Per: Patient History/Exam Limitations: no limitations Associated Symptoms: denies: Suicidal Thoughts, Suicidal Plan Additional Complaint(s): 32yo male, with history of schizophrenia, presents to ED with complaints of auditory hallucinations. Patient states the hallucinations are not commanding and he denies any suicidal ideation or homicidal ideation. Patient does state he is non-compliant with his psychiatric medications. Currently, he offers no medical complaints. Past Medical History Reviewed: Historical Data, Nursing Documentation, Vital Signs Vital Signs: Last Vital Signs Temp 98.6 F 07/19/17 00:10 Pulse 86 07/19/17 00:10 Resp 16 07/19/17 00:10 BP 132/84 07/19/17 00:10 Pulse Ox 99 07/19/17 00:10 - Medical History PMH: Bipolar Disorder, Fractures (arm, casted w/o surgery), Hepatitis (type B), HTN, Schizophrenia Denies: Diabetes, HIV, Chronic Kidney Disease, Seizures, Sexually Transmitted Disease - Surgical History Surgical History: Hernia Repair - Family History Family History: States: Unknown Family Hx - Immunization History Hx Tetanus Toxoid Vaccination: No Hx Influenza Vaccination: No Hx Pneumococcal Vaccination: No - Home Medications Home Medications: Ambulatory Orders Medication Instructions Recorded Aspirin [Aspirin Chewable] 81 mg PO DAILY #30 08/25/16 Atorvastatin [Lipitor] 10 mg PO DAILY #30 tab 08/25/16 Carvedilol [Coreg] 3.125 mg PO Q12 #60 tab 08/25/16 Lisinopril [Zestril] 10 mg PO DAILY #30 tab 08/25/16 Olanzapine [Zyprexa] 15 mg PO HS #30 tablet 08/25/16 - Allergies Allergies/Adverse Reactions: Allergies Allergy/AdvReac Type Severity Reaction Status Date / Time No Known Allergies Allergy Verified 07/19/17 00:10 Review of Systems ROS Statement: Except As Marked, All Systems Reviewed And Found Negative Psych: Positive for: Other (auditory hallucinations) Physical Exam - Reviewed Nursing Documentation Reviewed: Yes Vital Signs Reviewed: Yes - Physical Exam Appears: Positive for: Non-toxic (poor state of hygeine) Head Exam: Positive for: ATRAUMATIC, NORMAL INSPECTION, NORMOCEPHALIC Skin: Positive for: Normal Color Neck: Positive for: Supple Cardiovascular/Chest: Positive for: Regular Rate, Rhythm Respiratory: Positive for: Normal Breath Sounds. Negative for: Respiratory Distress Neurologic/Psych: Positive for: Alert, Oriented. Negative for: Motor/Sensory Deficits - ECG O2 Sat by Pulse Oximetry: 99 (RA) Pulse Ox Interpretation: Normal Medical Decision Making Medical Decision Making: Impression: 32yo male with hallucinations in setting of history of schizophrenia Plan: -- Crisis evaluation Time: 309 Patient seen and evalauated by crisis team. Per Dr. Buckley, patient stable for discharge home, diagnosis of schizophrenia. Patient offered Xyprexa 15 mg PO which he declined. Patient given instructions for follow up and informed to return to ED if symptoms worsen or new symptoms arise. Scribe Attestation: Documented by Mariaa Lopez acting as a scribe for Elian Aggarwal MD. Provider Attestation: All medical record entries made by the Scribe were at my direction and personally dictated by me. I have reviewed the chart and agree that the record accurately reflects my personal performance of the history, physical exam, medical decision making, and the department course for this patient. I have also personally directed, reviewed, and agree with the discharge instructions and disposition. Disposition - Clinical Impression Clinical Impression: Schizophrenia - Disposition Referrals: [facility] [Outside] Disposition: Routine/Home Disposition Time: 03:10 Condition: STABLE Instructions: Schizophrenia Forms: [employer] (Wolof)
== END 2017-07-19 03:40 | disposition home or self-care (01) ==
LOC: H.ER 00:04
DX: F20.9 Schizophrenia, unspecified (principal); Z86.59 Personal history of other mental and behavioral disorders; Z00.8 Encounter for other general examination; Z79.82 Long term (current) use of aspirin

== ENCOUNTER 2017-08-13 10:59 | Emergency (ER) | payer OTHER ==
[2017-08-13 11:09] VITALS: BP 121/83; PULSE 99; TEMP 97.8; O2SAT 95; BMI 27.5
--- NOTE | 2017-08-13 11:14 | ED PDOC ---
HPI: Psych/Substance Abuse Time Seen by Provider: 08/13/17 11:13 Chief Complaint (Provider): crisis eval History Per: Patient Additional Complaint(s): 32 year old male with history of schizophrenia presents for crisis evaluation. Mother states patient refuses to take his medications. Patient states he is hearing voices for the past few months. Patient denies suicidal or homicidal ideation. He had an appointment today at [facility] but missed the time so he was referred to ED for further evaluation. He denies alcohol or drug use. PMD: Dr. Evans Past Medical History Reviewed: Historical Data, Nursing Documentation, Vital Signs Vital Signs: Last Vital Signs Temp 97.8 F 08/13/17 11:08 Pulse 99 H 08/13/17 11:08 Resp BP 121/83 08/13/17 11:08 Pulse Ox 95 08/13/17 11:08 - Medical History PMH: Bipolar Disorder, Fractures (arm, casted w/o surgery), HTN, Schizophrenia - Surgical History Surgical History: Hernia Repair - Family History Family History: States: No Known Family Hx - Living Arrangements Living Arrangements: With Family - Social History Current smoker - smoking cessation education provided: No Alcohol: None Drugs: Denies - Home Medications Home Medications: Ambulatory Orders Medication Instructions Recorded Aspirin [Aspirin Chewable] 81 mg PO DAILY #30 08/25/16 Atorvastatin [Lipitor] 10 mg PO DAILY #30 tab 08/25/16 Carvedilol [Coreg] 3.125 mg PO Q12 #60 tab 08/25/16 Lisinopril [Zestril] 10 mg PO DAILY #30 tab 08/25/16 Olanzapine [Zyprexa] 15 mg PO HS #30 tablet 08/25/16 - Allergies Allergies/Adverse Reactions: Allergies Allergy/AdvReac Type Severity Reaction Status Date / Time No Known Allergies Allergy Verified 07/19/17 00:10 Review of Systems ROS Statement: Except As Marked, All Systems Reviewed And Found Negative Psych: Positive for: Psychosis (hearing voices), Other (denies suicidal or homicidal ideation) Physical Exam - Reviewed Nursing Documentation Reviewed: Yes Vital Signs Reviewed: Yes - Physical Exam Appears: Positive for: Well, Non-toxic, No Acute Distress Skin: Negative for: Rash Eye Exam: Positive for: Normal appearance Cardiovascular/Chest: Positive for: Regular Rate, Rhythm Respiratory: Positive for: Normal Breath Sounds Neurologic/Psych: Positive for: Alert, Oriented - ECG O2 Sat by Pulse Oximetry: 95 Pulse Ox Interpretation: Normal Medical Decision Making Medical Decision Makin32 y/o here for crisis eval Plan: Crisis consult As per crisis counselor and psychiatrist entry level installation technician Dr. Vazquez, patient does not meet criteria for admission and is stable for outpatient follow-up. Disposition - Clinical Impression Clinical Impression: Schizophrenia - Patient ED Disposition Is Patient to be Admitted: No Counseled Patient/Family Regarding: Diagnosis, Need For Followup - Disposition [facility]errals[facility] Disposition: Routine/Home Disposition Time: 12:15 Condition: STABLE Additional Instructions: Follow up as directed. Instructions: Schizophrenia (DC) Forms: [employer] (Ghanaian), [employer] (Guamanian) Print Language: CROATIAN
[2017-08-13 11:16] VITALS: RESP 16
== END 2017-08-13 12:27 | disposition home or self-care (01) ==
LOC: H.ER 10:59
DX: F20.9 Schizophrenia, unspecified (principal); F31.9 Bipolar disorder, unspecified; I10 Essential (primary) hypertension; Z79.82 Long term (current) use of aspirin

== ENCOUNTER 2017-08-25 17:39 | Inpatient (IN) | payer MEDICAID, OTHER ==
[2017-08-25 17:39] VITALS: BMI 27.5
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
[2017-08-25 19:01] LABS: BASO # 0.1 K/uL (0.0-0.2); BASO % 0.9 % (0.0-2.0); EOS # 0.1 K/uL (0.0-0.7); EOS % 1.3 % (0.0-4.0); HEMOGLOBIN 16.8 g/dL (12.0-18.0); LYMPH # 3.9 K/uL (1.0-4.3); LYMPH % 34.5 % (20.0-40.0); MEAN CELL VOLUME 96.9 fl (80.0-94.0); MEAN CORPUSCULAR HEMOGLOBIN 32.3 pg (27.0-31.0); MEAN CORPUSCULAR HGB CONC 33.4 g/dL (33.0-37.0); MEAN PLATELET VOLUME 8.3 fl (7.2-11.7); MONO # 0.7 K/uL (0.0-0.8); MONO % 6.5 % (0.0-10.0); NEUT # 6.5 K/uL (1.8-7.0); NEUT % 56.8 % (50.0-75.0); RBC 5.19 Mil/uL (4.40-5.90); RED CELL DISTRIBUTION WIDTH 12.9 % (11.5-14.5); WHITE BLOOD COUNT 11.4 K/uL (4.8-10.8)
[2017-08-25 19:29] LABS: ALB/GLOB RATIO 1.4 (1.0-2.1); ALBUMIN 5.1 g/dL (3.5-5.0); ALT/SGPT 32 U/L (21-72); AST/SGOT 33 U/L (17-59); BLOOD UREA NITROGEN 12 mg/dl (9-20); CALCIUM 9.8 mg/dL (8.4-10.2); GFR AFRICAN-AMERICAN > 60; GFR NON-AFRICAN AMERICAN > 60
[2017-08-25] MEDS ORDERED: Sodium Chloride 0.9% 1,000 ML IV STA ×2 (19:45→20:07)
[2017-08-25 21:18] LABS: BARBITURATES, UR NEGATIVE (NEGATIVE); BENZODIAZEPINES, UR NEGATIVE (NEGATIVE); OPIATES, UR NEGATIVE (NEGATIVE); PHENCYCLIDINE, UR NEGATIVE (NEGATIVE)
[2017-08-25 21:19] LABS: URINE BILIRUBIN NEGATIVE (NEGATIVE); URINE BLOOD SMALL (NEGATIVE); URINE CLARITY CLEAR (Clear); URINE COLOR YELLOW (YELLOW); URINE GLUCOSE (UA) NEG (Normal); URINE HYALINE CAST 0-2 /hpf (0-2); URINE LEUKOCYTE ESTERASE NEG Leu/uL (Negative); URINE PROTEIN NEGATIVE (NEGATIVE); URINE UROBILINOGEN 0.2-1.0 mg/dL (0.2-1.0)
[2017-08-25 22:08] LABS: ALB/GLOB RATIO 1.4 (1.0-2.1); ALBUMIN 4.2 g/dL (3.5-5.0); ALT/SGPT 33 U/L (21-72); AST/SGOT 26 U/L (17-59); BLOOD UREA NITROGEN 10 mg/dl (9-20); CALCIUM 8.7 mg/dL (8.4-10.2); GFR AFRICAN-AMERICAN > 60; GFR NON-AFRICAN AMERICAN > 60
--- NOTE | 2017-08-25 22:40 | ED PDOC ---
- Laboratory Results Result Diagrams: 08/25/17 18:54 08/25/17 21:50 - ECG O2 Sat by Pulse Oximetry: 98 - Progress ED Course And Treament: Case endorsed to quality analyst/technical writer from Susana SAWYER pending repeat labs after IV hydration, crisis eval Patient evaluated by sanitation worker hosing machinery; to be admitted as per Dr. García. Repeat CO2 20. Medical Decision Making Medical Decision Making: Patient medically stable for psych admission Disposition - Clinical Impression Clinical Impression: Schizophrenia - POA Present On Arrival: None - Disposition Disposition: Admitted as In-Patient Disposition Time: 22:40 Condition: STABLE
[2017-08-26 00:30] VITALS: O2SAT 99
[2017-08-26] MEDS ORDERED: Magnesium Hydroxide Susp 30 ml UD PO PRN (00:46)
[2017-08-26] MEDS ORDERED: Alum-Mag Hydrox-Simethicone Susp (30 mL) PO PRN (00:46)
[2017-08-26] MEDS ORDERED: DiphenhydrAMINE 50 mg/ml Inj IM PRN (00:46)
[2017-08-26 03:08] VITALS: PULSE 103
--- NOTE | 2017-08-26 08:21 | CARD ---
APPROVED REPORT EKG Measurement Heart [id number] <Conclusion> Sinus tachycardia Otherwise normal ECG
[2017-08-26 08:41] LABS: T4 7.8 ug/dl (5.5-11.0)
[2017-08-26 09:07] VITALS: BP 137/86; RESP 20; TEMP 97.7
--- NOTE | 2017-08-26 09:12 | RAD ---
HISTORY: clearance COMPARISON: 08/17/2016 FINDINGS: LUNGS: No active pulmonary disease. PLEURA: No significant pleural effusion identified, no pneumothorax apparent. CARDIOVASCULAR: Normal. OSSEOUS STRUCTURES: No significant abnormalities. VISUALIZED UPPER ABDOMEN: Normal. OTHER FINDINGS: None. IMPRESSION: No active disease. No interval pathology noted
[2017-08-26] MEDS ORDERED: Risperidone M TAB 2 MG PO STA (10:55)
--- NOTE | 2017-08-26 13:29 | PCM.PSYCH ---
Initial Psychiatric Evaluation - Initial Psychiatric Evaluation Type of Admission: Voluntary Legal Status: Capacity Chief Complaint (in patient's own words): pt is 32ys old male with previous diagnosis of schizophrenia , pt was discharged from [facility] 08/2016, since then non compliant with medications or follow up, pt has been decompensating, with poor sleep, pacing at home, internally pre occupied experiencing command auditory hallucinations telling him what to do, pt also experiencing visual hallucinations agitated and irritable at home with the family worried about their safety Patient's Reaction to Hospitalization: pt requesting to be discharged History of Present Illness and Precipitating Events: pt is 32ys old male with previous diagnosis of schizophrenia , pt was discharged from [facility] 08/2016, since then non compliant with medications or follow up, pt has been decompensating, with poor sleep, pacing at home, internally pre occupied experiencing command auditory hallucinations telling him what to do, pt also experiencing visual hallucinations ,pt also exhibiting disorganized behavior , throwing his clothes out of window and stating that his shoes are suffocating him, on day of evaluation pt was agitated and irritable, threatening towards his family , they felt unsafe in his presence and brought him to ER on the unit pt is floridly psychotic, observed internally preoccupied responding to internal stimuli and starring at the white, pacing and anxious , partialy compliant with medications, requesting to be discharged and signed 48 hour notice pt has been agitated in ER and had to be placed in four limb restraints Current Medications: Active Medications Generic Name Dose Route Start Last Admin Trade Name Freq PRN Reason Stop Dose Admin Acetaminophen 650 mg 08/26/17 00:46 Tylenol 325mg Tab PO Q4 PRN pain level 4-7 Al Hydrox/Mg Hydrox/Simethicone 30 ml 08/26/17 00:46 Maalox Plus 30 Ml PO Q4 PRN Dyspepsia Diphenhydramine HCl 50 mg 08/26/17 00:46 Benadryl IM Q6 PRN Extrapyramidal S/S Unable PO Diphenhydramine HCl 50 mg 08/26/17 00:46 Benadryl PO Q6 PRN Extrapyramidal Symptoms Diphenhydramine HCl 50 mg 08/26/17 00:49 Benadryl PO HS PRN Sleep Haloperidol 5 mg 08/26/17 00:46 Haldol PO Q4 PRN Agitation Haloperidol Lactate 5 mg 08/26/17 00:46 Haldol IM Q4 PRN Agitation, Unable to Take PO Lorazepam 2 mg 08/26/17 00:46 Ativan IM Q4 PRN Anxiety/Agitation,Unable PO Lorazepam 2 mg 08/26/17 00:46 Ativan PO Q4 PRN Anxiety/Agitation Magnesium Hydroxide 30 ml 08/26/17 00:46 Milk Of Magnesia PO HS PRN Constipation Past Psychiatric History - Past Psychiatric History Explanation of prior treatment: multiple hospitalizations for disorganized behavior and psychosis , history of non compliance History of Abuse: denied History of ETOH/Drug Use: denied Pertinent Medical Hx (Current Medical&Sleep Prob, Allergies): Allergies Allergy/AdvReac Type Severity Reaction Status Date / Time No Known Allergies Allergy Verified 08/25/17 17:57 Mental Status Examination - Personal Presentation Personal Presentation: Looks stated age - Affect Affect: Constricted Additional comments: angry irritable anxious - Motor Activity Motor Activity: Psychomotor Agitation - Reliability in Providing Information Reliability in Providing Information: Poor, due to alteration in thoughts - Speech Speech: Disorganized - Mood Mood: Anxious - Formal Thought Process Formal Thought Process: Hallucinations, Delusions, Paranoia Additional comments: pt internally pre occupied, responding to internal stimuli , denied command hallucinations to hurt self or others - Hallucinations/Delusions Hallucinations: Visual, Auditory - Obsessions/Compulsions Obsessions: No Compulsions: No - Cognitive Functions Orientation: Person, Place Sensorium: Alert Attention/Concentration: Easily distracted Judgement: Imparied, as evidence by: Poor judgement, Imparied, as evidence by: Lack of insight into illness - Risk Risk: Elopement, Diminished functioning - Strength & Assets Inventory Strength & Assets Inventory: Family support - Limitations Additional comments: poor compliance DSM 5 DX - DSM 5 DSM 5 Diagnosis: schizophrenia - Recommended/Plan of Treatment Treatment Recommendations and Plan of Treatment: risperidone 1mg bid and uptitrate gradually pt signed 48 hours requesting to be discharged, refusing to continue with medications pt at current mental status floridly psychotic , danger to self and others, will be referred to be screened for involuntary admission, for contiuity of treatment
[2017-08-26] MEDS ORDERED: Risperidone M tab 1 MG PO SCH (22:00)
[2017-08-27] MEDS ORDERED: Risperidone M tab 1 MG PO SCH (09:00)
--- NOTE | 2017-08-27 13:03 | PCM.PYCHPN ---
Psychiatric Progress Note - Psychiatric Progress Note Patient seen today, length of contact: pt evaluated discussed with team chart reviewed Patient Chief Complaint: I need to get out of here there is nothing wrong with me Problems Identified/Issues Discussed: pt on evaluation continues to be disorganized , internally preoccupied with thought blocking , appears responding to internal stimuli, with anxious mood and affect , requesting to be discharged, irritable and angry at times with limited insight into illness denied any current suicidal or homicidal ideation denied command hallucinations Medical Problems: multiple hospitalizations for disorganized behavior and psychosis , history of non compliance DSM 5 Symptoms Update: schizophrenia Medication Change: Yes (increase risperidone) Medical Record Reviewed: Yes Consults ordered or reviewed: family practice consult for hypertension Mental Status Examination - Cognitive Function Orientation: Person, Place Memory: Intact Attention: Poor Concentration: Poor Association: Loose Fund of Knowledge: Poor Decription of patient's judgement and insights: poor insight and judgment - Mood Mood: Anxious - Affect Affect: Constricted Additional comments: irritable - Speech Speech: Pressured - Formal Thought Process Formal Thought Process: Hallucinations, Delusions, Paranoia Psychotic Thoughts and Behaviors: pt internally preoccupied - Suicidal Ideation Suicidal Ideation: No - Homicidal Ideation Homicidal Ideation: No Goal/Treatment Plan - Goal/Treatment Plan Need for Continued Stay: Remain at risks for inpatient hospitalization, Discharge may exacerbated symptoms, Severe functional impairment Progress Toward Problem(s) and Goals/Treatment Plan: increase risperidone 2mg bid and uptitrate gradually pt signed 48 hours requesting to be discharged, refusing to continue with medications pt screened for involuntary admission and accepted , to be transferred to [facility] upon availability of bed for continuity of care
[2017-08-27] MEDS ORDERED: Risperidone M TAB 2 MG PO SCH (22:00)
[2017-08-28] MEDS ORDERED: Risperidone M TAB 2 MG PO SCH (09:00)
--- NOTE | 2017-08-28 14:05 | PCM.PYCHDC ---
Mental Status Examination - Mental Status Examination Orientation: Person, Place Memory: Intact Mood: Depressed, Anxious Affect: Constricted Speech: Loud Attention: Poor Concentration: Poor Fund of Knowledge: Poor Formal Thought Process: Hallucinations, Delusions, Paranoia, Circumstantial Description of patient's judgement and insight: poor insight and judgment Psychotic Thoughts and Behaviors: pt internally preoccupied Suicidal Ideation: No Current Homicidal Ideation?: No Discharge Summary - Discharge Note Reason for Hospitalization: pt is 32ys old male with previous diagnosis of schizophrenia , pt was discharged from [facility] 08/2016, since then non compliant with medications or follow up, pt has been decompensating, with poor sleep, pacing at home, internally pre occupied experiencing command auditory hallucinations telling him what to do, pt also experiencing visual hallucinations ,pt also exhibiting disorganized behavior , throwing his clothes out of window and stating that his shoes are suffocating him, on day of evaluation pt was agitated and irritable, threatening towards his family , they felt unsafe in his presence and brought him to ER on the unit pt is floridly psychotic, observed internally preoccupied responding to internal stimuli and starring at the white, pacing and anxious , partialy compliant with medications, requesting to be discharged and signed 48 hour notice pt has been agitated in ER and had to be placed in four limb restraints Consultations:: List each consultation separately and include: 1. Reason for request. 2. Findings. 3. Follow-up Consultations: family practice consult for hypertension Summary of Hospital Course include:: 1. Description of specific treatment plan utilized for patients during their course of treatmen. 2. Summarize the time- course for resolution of acute symptoms and/or regressed behaviors. 3. Describe issues identified and worked on during hospitalization. 4. Describe medication utilized. 5. Describe medical problems identified and treated. 6. Reassessment of suicide risk Summary of Hospital Course: pt on admission, disorganized delusional internally preoccupied, floridly psychotic, refusing medications and requesting to be discharged, signed 48 hours notice pt was screened and accepted by by [facility] for involuntary admission and continuity of care - Final Diagnosis (DSM 5) Condition upon Discharge: STABLE DSM 5: schizophrenia disorganized type Disposition: Transfer [facility] Follow-up Treatment Plan: increase risperidone 2mg bid and uptitrate gradually pt signed 48 hours requesting to be discharged, refusing to continue with medications pt screened for involuntary admission and accepted , to be transferred to [facility] upon availability of bed for continuity of care - Antipsychotic Medications Pt discharged on 2 or more routine antipsychotic medications: No
== END 2017-08-28 01:20 | DRG 430 ==
LOC: H.ER 17:39 → H.ERHOLD 22:19 → H.PSYCH 08-26 00:14
PROVIDERS: ADMIT Psychiatry & Neurology Psychiatry; ATTEND Psychiatry & Neurology Psychiatry
DX: F20.1 Disorganized schizophrenia (principal); Z91.14 Patient's other noncompliance with medication regimen; Z91.19 Patient's noncompliance with other medical treatment and regimen; Z78.1 Physical restraint status

== ENCOUNTER 2017-10-03 17:39 | Emergency (ER) | payer MEDICAID, OTHER ==
[2017-10-03 17:39] VITALS: BMI 27.5
[2017-10-03 17:53] VITALS: BP 122/86; PULSE 77; RESP 16; O2SAT 98
--- NOTE | 2017-10-03 18:51 | ED PDOC ---
HPI: Psych/Substance Abuse Time Seen by Provider: 10/03/17 18:06 Chief Complaint (Nursing): Psychiatric Evaluation Chief Complaint (Provider): Psych Evaluation History Per: Patient, Family (mother at bedside) History/Exam Limitations: no limitations Additional Complaint(s): 32-year-old male, with a PMHx of anxiety, schizophrenia presents to ED for psychiatric evaluation. Patient reports hearing voices telling him to kill himself and to harm his mother. Patient states he has thoughts of lying on the train tracks, but has not actually attempted suicide in the past. Mother (at bedside) reports patient is complaint with his medications at home. Patient was recently discharged from psychiatry floor last week for similar complaints. Denies visual hallucinations. Patient reports voices harasses him so much he developed a headache today. Reports he took Advil 2 hours ago. Patient currently rates headache a 3 out of 10 and global. No other complaints at present. PMD: Badr Past Medical History Reviewed: Historical Data, Nursing Documentation, Vital Signs Vital Signs: Last Vital Signs Temp 97.7 F 10/03/17 17:48 Pulse 77 10/03/17 17:48 Resp 16 10/03/17 17:48 BP 122/86 10/03/17 17:48 Pulse Ox 98 10/03/17 17:48 - Medical History PMH: Anxiety, Bipolar Disorder (as per nurse to nurse report), Fractures, HTN, Schizophrenia - Surgical History Surgical History: Hernia Repair - Family History Family History: States: Unknown Family Hx - Social History Current smoker - smoking cessation education provided: No Alcohol: None Drugs: Denies - Home Medications Home Medications: Ambulatory Orders Medication Instructions Recorded Benztropine [Cogentin] 0.5 mg PO DAILY 30 Days #30 tab 09/30/17 Benztropine [Cogentin] 1 mg PO HS 30 Days #30 tab 09/30/17 Divalproex [Depakote DR(*BID*)] 750 mg PO BID 30 Days #180 tcp 09/30/17 Haloperidol [Haldol] 5 mg PO DAILY 30 Days #30 tab 09/30/17 Haloperidol [Haldol] 10 mg PO HS 30 Days #30 tab 09/30/17 Lisinopril [Zestril] 10 mg PO DAILY 30 Days #30 tab 09/30/17 traZODone [Desyrel] 50 mg PO HS 30 Days #30 tab 09/30/17 - Allergies Allergies/Adverse Reactions: Allergies Allergy/AdvReac Type Severity Reaction Status Date / Time No Known Allergies Allergy Verified 10/03/17 17:48 Review of Systems ROS Statement: Except As Marked, All Systems Reviewed And Found Negative Neurological: Positive for: Headache Psych: Positive for: Suicidal ideation (with plan). Negative for: Other ( homoicidal ideation) Physical Exam - Reviewed Nursing Documentation Reviewed: Yes Vital Signs Reviewed: Yes - Physical Exam Appears: Positive for: Well, Non-toxic, No Acute Distress (calm, cooperative) Head Exam: Positive for: NORMOCEPHALIC Skin: Positive for: Normal Color, Warm, Dry Eye Exam: Positive for: EOMI, PERRL ENT: Positive for: Other (Mucus membranes moist. Airway patent, (-) stridor.) Neck: Positive for: Painless ROM, Supple Cardiovascular/Chest: Positive for: Regular Rate, Rhythm Respiratory: Positive for: Normal Breath Sounds. Negative for: Respiratory Distress Gastrointestinal/Abdominal: Positive for: Bowel Sounds (x4), Soft. Negative for : Tenderness, Distended, Guarding Extremity: Positive for: Normal ROM. Negative for: Deformity Neurologic/Psych: Positive for: Alert, Oriented (x 3), Mood/Affect (flat), Gait (steady in ED) - ECG O2 Sat by Pulse Oximetry: 98 (RA) Pulse Ox Interpretation: Normal Medical Decision Making Medical Decision Making: Time: 18:14 Impression(s): Auditory Hallucinations/Schizophrenia, Headache Plan: - Crisis Evaluation - 1:1 Observation - Tylenol 650mg PO - Re-evaluation Time: 19:33 Patient cleared for discharge by Dr. García with the diagnosis is schizophrenia. Outpatient follow up arranged by crisis team. On re-evaluation, patient reports improvement of symptoms. On exam, patient remains AAOx3, in no acute distress. On exam, neck is supple, lungs CTA, cardiac RRR, abdomen is soft and non-tender, neuro exam shows no focal findings. VSS, stable for discharge. Diagnostic results d/w the patient in great detail. Dx of auditory hallucinations, schizophrenia, headache d/w the patient. Based on history, exam and diagnostic results plan will be for discharge and outpatient psych follow up. Advised to follow up with primary care physician/clinic in 1-2 days without fail. Advised to take medication as prescribed. Return to the emergency room at any time for any new or worsening symptoms. Patient states he fully agrees with and understands discharge instructions. States that he agrees with the plan and disposition. Verbalized and repeated discharge instructions and plan. I have given the patient opportunity to ask any additional questions. Scribe Attestation: Documented by Roberto Reed, acting as a scribe for Hazel Lr PA-C. Provider Scribe Attestation: All medical record entries made by the Scribe were at my direction and personally dictated by me. I have reviewed the chart and agree that the record accurately reflects my personal performance of the history, physical exam, medical decision making, and the department course for this patient. I have also personally directed, reviewed, and agree with the discharge instructions and disposition. Disposition - Clinical Impression Clinical Impression: Headache, Schizophrenia, Auditory hallucination - Patient ED Disposition Is Patient to be Admitted: No Counseled Patient/Family Regarding: Studies Performed, Diagnosis, Need For Followup, Rx Given - Disposition Referrals: [facility]Outside] Disposition: Routine/Home Disposition Time: 19:48 Condition: FAIR Additional Instructions: FOLLOW UP WITH PMD IN 1-2 DAYS WITHOUT FAIL. FOLLOW UP WITH MENTAL HEALTH CLINIC ARRANGED BY CRISIS. RETURN TO ED WITH ANY NEW OR WORSENING SYMPTOMS. Instructions: Headache, Adult, Schizophrenia (DC) Forms: [employer] (Canadian) Print Language: PORTUGUESE - POA Present On Arrival: None
[2017-10-03 20:04] VITALS: TEMP 97.9
== END 2017-10-03 20:03 | disposition home or self-care (01) ==
LOC: H.ER 17:39
DX: R51 Headache (principal); F20.9 Schizophrenia, unspecified; R44.0 Auditory hallucinations; F31.9 Bipolar disorder, unspecified; F41.9 Anxiety disorder, unspecified; I10 Essential (primary) hypertension

== ENCOUNTER 2018-06-04 20:08 | Emergency (ER) | payer MEDICAID, OTHER ==
[2018-06-04 20:08] VITALS: BMI 27.5
[2018-06-04 20:19] VITALS: RESP 16; TEMP 98.1
[2018-06-04] MEDS ORDERED: Sodium Chloride 0.9% 1,000 ML IV STA (21:22)
--- NOTE | 2018-06-04 21:25 | ED PDOC ---
HPI: General Adult Time Seen by Provider: 06/04/18 20:43 Chief Complaint (Nursing): Dizziness/Lightheaded Chief Complaint (Provider): Dizziness/Lightheaded History Per: Patient History/Exam Limitations: no limitations Onset/Duration Of Symptoms: Hrs (x1) Current Symptoms Are (Timing): Still Present Additional Complaint(s): 32 year old male with a history of hypertension presents to the ED with intermittent dizziness for one hour. Patient reports associated nausea, but denies any vomiting, diarrhea, headaches or abdominal pain. No chest pain, dyspnea, weakness. PMD: Terrence Steiner Past Medical History Reviewed: Historical Data, Nursing Documentation, Vital Signs Vital Signs: Last Vital Signs Temp 98.1 F 06/04/18 20:17 Pulse 92 H 06/04/18 20:17 Resp 16 06/04/18 20:17 BP 122/80 06/04/18 20:17 Pulse Ox 96 06/04/18 20:17 - Medical History PMH: Bipolar Disorder (as per nurse to nurse report), Fractures (arm, casted w/o surgery), HTN, Schizophrenia Denies: Diabetes, Hepatitis, HIV, Chronic Kidney Disease, Seizures, Sexually Transmitted Disease - Surgical History Surgical History: Hernia Repair - Family History Family History: States: Unknown Family Hx - Immunization History Hx Tetanus Toxoid Vaccination: No Hx Influenza Vaccination: No Hx Pneumococcal Vaccination: No - Home Medications Home Medications: Ambulatory Orders Medication Instructions Recorded Benztropine [Cogentin] 0.5 mg PO DAILY 30 Days #30 tab 09/30/17 Benztropine [Cogentin] 1 mg PO HS 30 Days #30 tab 09/30/17 Divalproex [Depakote DR(*BID*)] 750 mg PO BID 30 Days #180 tcp 09/30/17 Haloperidol [Haldol] 5 mg PO DAILY 30 Days #30 tab 09/30/17 Haloperidol [Haldol] 10 mg PO HS 30 Days #30 tab 09/30/17 Lisinopril [Zestril] 10 mg PO DAILY 30 Days #30 tab 09/30/17 traZODone [Desyrel] 50 mg PO HS 30 Days #30 tab 09/30/17 Meclizine [Meclizine*] 25 mg PO Q12 PRN #10 tab 06/04/18 - Allergies Allergies/Adverse Reactions: Allergies Allergy/AdvReac Type Severity Reaction Status Date / Time No Known Allergies Allergy Verified 06/04/18 20:15 Review of Systems ROS Statement: Except As Marked, All Systems Reviewed And Found Negative Gastrointestinal: Positive for: Nausea. Negative for: Vomiting, Abdominal Pain, Diarrhea Neurological: Positive for: Dizziness. Negative for: Headache Physical Exam - Reviewed Nursing Documentation Reviewed: Yes Vital Signs Reviewed: Yes - Physical Exam Appears: Positive for: Non-toxic, No Acute Distress Head Exam: Positive for: ATRAUMATIC, NORMOCEPHALIC Skin: Positive for: Normal Color, Warm, Dry Eye Exam: Positive for: EOMI, Normal appearance, PERRL ENT: Positive for: Normal ENT Inspection Neck: Positive for: Normal Cardiovascular/Chest: Positive for: Regular Rate, Rhythm. Negative for: Murmur Respiratory: Positive for: Normal Breath Sounds. Negative for: Respiratory Distress Gastrointestinal/Abdominal: Positive for: Normal Exam, Soft. Negative for: Tenderness Back: Positive for: Normal Inspection Extremity: Positive for: Normal ROM (upper and lower). Negative for: Pedal Edema, Deformity Neurologic/Psych: Positive for: Alert, family practice physician assistant II-XII, Oriented (x3). Negative for: Motor/Sensory Deficits, Aphasia, Facial Droop - Laboratory Results Result Diagrams: 06/04/18 22:50 06/04/18 22:50 Lab Results: no acute - ECG ECG: Positive for: Interpreted By Me, Viewed By Me ECG Rhythm: Positive for: Normal QRS, Normal ST Segment, Nonspecific Changes (same as old) O2 Sat by Pulse Oximetry: 96 (RA) Pulse Ox Interpretation: Normal - Progress ED Course And Treament: 2342: Stable. AAOx3. Tolerated PO. Ambulated with no issues. Fu with pcp. Medical Decision Making Medical Decision Making: Time: 2121 Plan: --EKG --BNP --Troponin --CBC --Antivert 25 mg PO --NS Scribe Attestation: Documented by Zonia Fuentes, acting as a scribe for Chino Coker MD. Provider Scribe Attestation: All medical record entries made by the Scribe were at my direction and personally dictated by me. I have reviewed the chart and agree that the record accurately reflects my personal performance of the history, physical exam, medical decision making, and the department course for this patient. I have also personally directed, reviewed, and agree with the discharge instructions and disposition. Disposition - Clinical Impression Clinical Impression: Dizziness - Patient ED Disposition Is Patient to be Admitted: No Counseled Patient/Family Regarding: Studies Performed, Diagnosis, Need For Followup, Rx Given - Disposition Referrals: [facility] [Outside] - 06/07/18 Disposition: Routine/Home Disposition Time: 23:43 Condition: STABLE Additional Instructions: Return if not better in 3 days. Prescriptions: Meclizine [Meclizine*] 25 mg PO Q12 PRN #10 tab PRN Reason: Dizziness Instructions: Vertigo (a Type of Dizziness) (DC) Forms: [employer] (Welsh) Print Language: YI
[2018-06-04 23:08] LABS: BASO # 0.1 K/uL (0.0-0.2); BASO % 0.9 % (0.0-2.0); EOS # 0.2 K/uL (0.0-0.7); EOS % 2.4 % (0.0-4.0); HEMOGLOBIN 14.6 g/dL (12.0-18.0); LYMPH # 1.9 K/uL (1.0-4.3); LYMPH % 21.3 % (20.0-40.0); MEAN CELL VOLUME 96.6 fl (80.0-94.0); MEAN CORPUSCULAR HEMOGLOBIN 32.5 pg (27.0-31.0); MEAN CORPUSCULAR HGB CONC 33.7 g/dL (33.0-37.0); MEAN PLATELET VOLUME 8.6 fl (7.2-11.7); MONO # 0.6 K/uL (0.0-0.8); MONO % 7.2 % (0.0-10.0); NEUT # 5.9 K/uL (1.8-7.0); NEUT % 68.2 % (50.0-75.0); RBC 4.5 Mil/uL (4.40-5.90); RED CELL DISTRIBUTION WIDTH 13.4 % (11.5-14.5); WHITE BLOOD COUNT 8.7 K/uL (4.8-10.8)
[2018-06-04 23:11] LABS: BLOOD UREA NITROGEN 15 mg/dl (9-20); CALCIUM 9.9 mg/dL (8.4-10.2); GFR NON-AFRICAN AMERICAN > 60
[2018-06-05 00:27] VITALS: BP 119/82; PULSE 77; O2SAT 98
--- NOTE | 2018-06-06 10:10 | CARD ---
APPROVED REPORT Date of service: 06/04/2018 EKG Measurement Heart [id number] <Conclusion> Normal sinus rhythm Incomplete right bundle branch block T wave abnormality, consider lateral ischemia Abnormal ECG
== END 2018-06-05 00:15 | disposition home or self-care (01) ==
LOC: H.ER 20:08
DX: R42 Dizziness and giddiness (principal); I10 Essential (primary) hypertension; F31.9 Bipolar disorder, unspecified
CPT/HCPCS: 80048; 84484; 85025; 93005; 99283; J7030